=== PATIENT | female | born 1980 | race Two or more races ===

== ENCOUNTER 2023-09-29 09:16 | Emergency (ER) | payer OTHER ==
[~2023-09-29] VITALS: Ht 157.5 cm; Wt 98.4 kg
[2023-09-29 10:52] LABS: HEMATOCRIT 43.1 % (36.0-45.00); HEMOGLOBIN 14.3 g/dL (12.0-15.00); MEAN CELL VOLUME 88.5 fL (80.00-100.00); MEAN CORPUSCULAR HEMOGLOBIN 29.3 pg (27.00-32.0); MEAN CORPUSCULAR HGB CONC 33.1 g/dl (32.0-36.0); PLATELET COUNT 318 K/uL (150-450); RED BLOOD COUNT 4.87 M/uL (4.00-6.00); RED CELL DISTRIBUTION WIDTH 13.5 % (11.5-14.5)
[2023-09-29 10:55] LABS: PH,URINE 6.5 (5.0-8.0); URINE APPEARANCE Clear; URINE BILIRRUBIN Negative (NEGATIVE); URINE BLOOD Negative; URINE COLOR Yellow; URINE GLUCOSE Negative (NEGATIVE); URINE LEUKOCYTE Small; URINE NITRATE Negative; URINE PROTEIN Trace (NEGATIVE)
[2023-09-29 10:56] LABS: URINE BACTERIA 9721.9 uL (0.0-1933); URINE EPITHELIAL CELLS 52.2 uL (0.0-38.8); URINE RBC 14.6 uL (0.0-20.8); URINE WBC 78.3 uL (0.0-23.2)
[2023-09-29 11:35] LABS: ANION GAP 6 (10.0-20.0); BLOOD UREA NITROGEN 11 mg/dL (7-18); BUN CREA RATIO 12 (7.0-25.0); CALCIUM 9.5 mg/dL (8.5-10.1); CARBON DIOXIDE 30 mEq/L (21-32); CHLORIDE 108 mmol/L (98-107); GLUCOSE FASTING 118 mg/dL (65-100); OSMOLALITY SERUM 280 MOSM/KG (275-295); POTASSIUM 3.86 mEq/L (3.5-5.1); SODIUM 140 mmol/L (136-145)
[2023-09-29 11:38] LABS: HCG QUANTITATIVE < 1 mUI/mL (1-3)
== END 2023-09-29 13:14 | disposition home or self-care (01) ==
LOC: ER 09:16
PROVIDERS: General Practice
DX: R53.81 Other malaise (principal); N39.0 Urinary tract infection, site not specified; R42 Dizziness and giddiness

== ENCOUNTER 2024-01-02 17:33 | Emergency (ER) | payer OTHER ==
[~2024-01-02] VITALS: Ht 157.5 cm; Wt 81.6 kg
[2024-01-02] MEDS ORDERED: ZIPRASIDONE HCL60 MG (18:06)
[2024-01-02] MEDS ORDERED: LITHIUM CARBON450 MG (18:07)
[2024-01-02 19:42] LABS: CALCIUM 9.2 mg/dL (8.5-10.1); CREATININE SERUM 0.83 mg/dL (0.55-1.02); GFR 75.39; POTASSIUM 4.04 mEq/L (3.5-5.1)
== END 2024-01-02 20:34 | disposition home or self-care (01) ==
LOC: ER 17:34
PROVIDERS: Emergency Medicine
DX: F31.9 Bipolar disorder, unspecified (principal)

== ENCOUNTER 2024-01-13 11:24 | Outpatient (CLI) | payer OTHER ==
[~2024-01-13 11:24] MED LIST: LITHIUM CARBON450 MG; ZIPRASIDONE HCL60 MG
== END 2024-01-13 13:28 | disposition home or self-care (01) ==
LOC: SONOGRAMA 11:24
PROVIDERS: ATTEND Emergency Medicine
DX: R10.9 Unspecified abdominal pain (principal); F41.1 Generalized anxiety disorder

== ENCOUNTER 2024-03-15 12:14 | Emergency (ER) | payer OTHER ==
[~2024-03-15] VITALS: Ht 157.5 cm; Wt 81.6 kg
[2024-03-15] MEDS ORDERED: PEPCID AC20 MG PO (14:04)
== END 2024-03-15 14:14 | disposition home or self-care (01) ==
LOC: ER 12:15
DX: K21.9 Gastro-esophageal reflux disease without esophagitis (principal)

== ENCOUNTER → 2024-04-27 | Emergency (ER) | payer OTHER ==
[~2024-04-27] VITALS: Ht 157.5 cm; Wt 106.1 kg
[~2024-04-27] MED LIST changes: +PEPCID AC20 MG PO
[2024-04-27 16:14] VITALS: BP 167/83
== END | disposition home or self-care (01) ==
LOC: ER 15:18
DX: R44.0 Auditory hallucinations (principal)

== ENCOUNTER 2024-07-18 16:25 | Emergency (ER) | payer OTHER ==
[~2024-07-18] VITALS: Ht 152.4 cm; Wt 108.9 kg
[2024-07-18 17:07] VITALS: BP 100/70; O2SAT 100
== END 2024-07-18 18:19 | disposition home or self-care (01) ==
LOC: ER 16:25
DX: J06.0 Acute laryngopharyngitis (principal); H92.02 Otalgia, left ear

== ENCOUNTER → 2024-11-29 | Emergency (ER) | payer OTHER | END | disposition left against medical advice (07) | LOC: ER 20:48 | DX: Z53.21 Procedure and treatment not carried out due to patient leaving prior to being seen by health care provider (principal) ==

== ENCOUNTER 2024-12-08 19:27 | Emergency (ER) | payer OTHER ==
[~2024-12-08] VITALS: Ht 160 cm; Wt 65.8 kg
== END 2024-12-08 21:09 | disposition home or self-care (01) ==
LOC: ER 19:27
DX: R14.0 Abdominal distension (gaseous) (principal)

== ENCOUNTER 2025-01-10 12:03 | Emergency (ER) | payer OTHER ==
[~2025-01-10] VITALS: Ht 160 cm; Wt 68.0 kg
[2025-01-10 12:46] VITALS: BP 122/80
== END 2025-01-10 12:52 | disposition left against medical advice (07) ==
LOC: ER 12:46
DX: Z53.21 Procedure and treatment not carried out due to patient leaving prior to being seen by health care provider (principal)

== ENCOUNTER → 2025-01-10 | Emergency (ER) | payer OTHER ==
[~2025-01-10] VITALS: Ht 160 cm; Wt 113.4 kg
== END | disposition left against medical advice (07) ==
LOC: ER 20:57
DX: Z53.21 Procedure and treatment not carried out due to patient leaving prior to being seen by health care provider (principal)

== ENCOUNTER 2025-03-06 11:34 | Outpatient (CLI) | payer OTHER | END 2025-03-06 11:39 | disposition home or self-care (01) | LOC: SONOGRAMA 11:34 | DX: R09.A2 Foreign body sensation, throat (principal) ==